=== PATIENT | male | born 1950 | race Caucasian/White ===

== ENCOUNTER 2017-09-18 16:33 | Emergency (ER) | payer MEDICARE ==
[~2017-09-18 16:33] MED LIST: ISOVUE-370 76%-LOCM 1 ML ONE
[2017-09-18 18:42] LABS: #Eosinphils 0.2 thou/uL (0.0-0.7); #Lymphocytes 1.6 thou/uL (1.20-3.40); #Monocytes 0.7 thou/uL (0.11-0.59); #Neutrophils 8.2 thou/uL (1.40-6.50); %Basophils 0.4 % (0.0-1.0); %Eosinophils 1.9 % (0.0-10.0); %Lymphocytes 14.6 % (21.0-51.0); %Monocytes 6.7 % (0.0-10.0); %Neutrophils 76.3 % (42.0-75.0); Hemoglobin 16.2 g/dL (14.0-18.0); Mean Corpuscular HGB CONC 32.3 g/dL (32.0-36.0); Mean Corpuscular Volume 92.9 fl (80.0-94.0); Platelet Count 240 thou/uL (130-400); RBC Distribution Width 11.7 % (11.5-14.5); Red Blood Cell (RBC) Count 5.39 mill/uL (4.70-6.10); White Blood Cell (WBC) Count 10.8 thou/uL (4.8-10.8)
[2017-09-18 18:57] LABS: ALT (SGPT) 11 U/L (8-55); AST (SGOT) 14 U/L (5-34); Albumin 4.1 g/dL (3.4-4.8); Alkaline Phosphatase 96 U/L (40-150); Anion Gap 11 mmol/L (10-20); BUN (Urea Nitrogen) 17 mg/dL (8.4-25.7); Bilirubin, Total 0.6 mg/dL (0.2-1.2); Calc. Creatinine Clearance 0 mL/min (70-130); Carbon Dioxide 28 mmol/L (23-31); Chloride 103 mmol/L (98-107); Estimated GFR-MDRD Greater than 90; Globulin 3.1 g/dL (2.4-3.5); Glucose 102 mg/dL (80-115); Potassium 4.4 mmol/L (3.5-5.1); Protein, Total 7.2 g/dL (5.8-8.1); Sodium 138 mmol/L (136-145)
--- NOTE | 2017-09-18 20:09 | RAD ---
PORTABLE AP CHEST X-RAY: 09/18/2017 HISTORY: Cough. COMPARISON: 09/04/2016 FINDINGS: The patient is rotated to the right, accentuating the cardiac silhouette and the mediastinal structur es, but the cardiac silhouette is within normal limits. There is symmetric biapical pleural and pare nchymal scarring with associated calcification. Mild chronic lung changes are seen, but no consolida tion or pleural fluid is seen. Vascular calcification is seen in the thoracic aorta. There has been no interval change when compared to the prior exam. IMPRESSION: Stable chronic lung changes without evidence of an acute cardiopulmonary process. POS: [facility]
--- NOTE | 2017-09-18 20:44 | CT ---
CT SCAN ORBITS WITH IV CONTRAST: 09/18/2017 HISTORY: Left eye swelling and discharge. COMPARISON: None available. FINDINGS: The right globe is atrophic and partially calcified. There are no post septal inflammatory changes o r fluid collections seen bilaterally. The left globe has a normal CT appearance. There is mild incr eased density/hyperemia with slight soft tissue swelling involving the eyelid on the left, which coul d be related to an inflammatory process. There is no fluid collection seen to suggest an abscess. There is mild mucosal thickening in the left sphenoid sinus, with minimal mucosal thickening in the e thmoid air cells bilaterally. The visualized frontal sinuses, as well as the visualized maxillary an tra, do appear clear. There is a large, enhancing mass seen at the skull base. This large mass may potentially arise from the sella. This large, enhancing mass measures approximately 3.1 cm craniocaudal x 5 cm transverse x 4.5 cm AP. The large mass does abut the anterior horns of the lateral ventricles, as well as the thi rd ventricle. The middle cerebral arteries are seen coursing through a portion of this mass, while o ther vessels are slightly displaced. A meningioma should displace vessels, as opposed to the vessels coursing through the mass. Further evaluation with MRI is recommended. There is encephalomalacia seen within the right temporal lobe. There is also mild prominence of the diploic space on the right, which is asymmetric to the left, of uncertain etiology. There is ex vacu o dilatation of the temporal horn of the right lateral ventricle, partially imaged. IMPRESSION: 1. Large, enhancing mass at the skull base, which could potentially represent a large mass arising f rom the sella turcica. The middle cerebral arteries do appear to course through this mass and, as a result, meningioma is thought less likely. This mass does result in mild mass effect on the anterior horns of the lateral ventricles, as well as the third ventricle, but no hydrocephalus is appreciated on the limited evaluation of the brain. 2. Encephalomalacia, right temporal lobe. 3. Atrophic partially calcified right globe. 4. No post septal inflammatory changes, fluid, or fluid collection is seen on the left; however, the re is what appears to be hyperemia of the eyelid on the left, which may be related to an inflammatory process/infection. This would be better evaluated clinically. The above findings were discussed with Dr. Robert in the emergency department on 09/18/2017 at 2007 hours. CODE CR POS: [facility]
[2017-09-18] MEDS ORDERED: Amoxicillin/Potassium Clav 875 MG TAB ONE (21:04)
== END 2017-09-18 21:41 | disposition home or self-care (01) ==
LOC: ERS 16:33
DX: H57.8 Other specified disorders of eye and adnexa; J45.909 Unspecified asthma, uncomplicated; D49.6 Neoplasm of unspecified behavior of brain; Z79.899 Other long term (current) drug therapy
CPT/HCPCS: 36415; 70481; 71045; 80053; 85025; 85652; 86140; 96360; 96361

== ENCOUNTER 2017-09-22 10:49 | Outpatient (CLI) | payer MEDICARE ==
--- NOTE | 2017-09-22 14:31 | MRI ---
PRE AND POSTCONTRAST ENHANCED MRI IMAGES OF BRAIN: DATE: 09/22/17. COMPARISON: Comparison is made to previous exam from 09/18/17 CT. FINDINGS: Pre- and postcontrast-enhanced MRI images of brain demonstrate a 4.9 x 4.7 x 4.4 cm mass originating along the lesser wing of the sphenoid centrally migrating superiorly, anteriorly, and posteriorly. T he lesion appears to have some anterior dural-based tails. The mass involves the lesser wing of the sphenoid extending posteriorly into the sella further migrating posteriorly draping over the upper ma rgin of the dural aspect of the clivus. The lesion has numerous abnormal vessels compatible with ext ensive vascular arterial flow. The right and left supraclinoid ICA have flow within them. The flow is seen extending into the KAL and MCA vessels bilaterally. Differential diagnosis for this lesion i ncludes meningioma, hemangiopericytoma, and less likely possible aggressive macroadenoma of the pitui tary. Images are less than optimum due to patient motion. It is difficult to discriminate the exact extens ion into the left orbit due to patient motion. The patient has an atrophied right globe. There is extensive atrophy of the right hemisphere with old encephalomalacia changes seen in the righ t temporal lobe and right occipital lobe. IMPRESSION: Sphenoid osseous dural-based lesion as described above. The mass involves much of the lesser wing of the sphenoid extending posteriorly along the posterior aspect of the sphenoid sinus and upper restaurant area manager ior margin of the clivus. POS: [facility]
== END 2017-09-22 10:50 | disposition home or self-care (01) ==
LOC: SCSMRI 10:49
PROVIDERS: ATTEND Neurological Surgery
DX: C71.9 Malignant neoplasm of brain, unspecified (principal)
CPT/HCPCS: 70553

== ENCOUNTER 2017-12-27 08:12 | Outpatient (CLI) | payer MEDICARE ==
[2017-12-27 09:20] LABS: Estimated GFR-MDRD - POC Greater than 90
--- NOTE | 2017-12-27 11:29 | MRI ---
BRAIN MRI WITH AND WITHOUT CONTRAST: COMPARISON: Reference is made to 09/22/17 MRI exam. CLINICAL INDICATION: Brain mass, followup. FINDINGS: Redemonstration of avidly enhancing T1 hypointense, T2/FLAIR hyperintense mass situated about the rocio la and anterior skull base, extraaxial in location. The mass measures approximately 4.5 cm craniocau jimbo x 4.7 cm transverse x 4.3 cm AP. There is persistent regional mass effect including cephalad dis placement, and effacement of the anterior aspect of the lateral ventricles. The mass replaces the na tive sellar contents and encases each cavernous carotid artery. Again seen is the proximal aspect of each MCA as well as proximal aspect of the anterior cerebral arteries and the anterior communicating artery within the mass. There is prepontine effacement about the cephalad aspect of the neyda. There is also mass effect upon the anterior aspect of each thalamus and effacement of the anterior aspect of the third ventricle. Redemonstration of prominent region of cystic encephalomalacia of the right occipital temporal region . Stable chronic deformity of the right globe. IMPRESSION: Redemonstration of a large enhancing extraaxial mass centered about the sella and anterior skull base with associated mass effect, grossly stable. Redemonstration of prominent region of cystic encephal omalacia of the right temporo-occipital lobe with ex vacuo dilatation of the ventricular system. POS: [facility]
[2017-12-27] MEDS ORDERED: Gadobenate Dimeglumine 529 MG/1 ML (20ML VIAL) ONE (12:36)
== END 2017-12-27 08:13 | disposition home or self-care (01) ==
LOC: TBSIIMAG 08:12
PROVIDERS: ATTEND Neurological Surgery
DX: G93.9 Disorder of brain, unspecified (principal)
CPT/HCPCS: 70553; 82565; A9579

== ENCOUNTER 2020-03-14 10:08 | Outpatient (CLI) | payer MEDICARE ==
--- NOTE | 2020-03-14 10:41 | RAD ---
EXAM: 2 views of the lumbosacral spine HISTORY: Low back pain COMPARISON: None FINDINGS: 2 views of the lumbosacral spine shows normal height and alignment of the vertebral bodies and intervertebral discs without fracture or subluxation. Mild posterior facet arthrosis is seen in the lower lumbosacral spine. The sacroiliac joints are unremarkable. IMPRESSION: Mild degenerative changes without acute osseous abnormality.
--- NOTE | 2020-03-14 10:59 | RAD ---
PA AND LATERAL VIEWS CHEST: Date: 03/14/2020 HISTORY: Cough. COMPARISON: 09/18/2017. FINDINGS: The heart size is normal. The lungs are well expanded with stable chronic changes. No lobar consolida tion, pneumothoraces, or pleural effusions are seen. There are degenerative changes in the spine. A h iatal hernia is present. IMPRESSION: No acute process. POS: [facility]
== END 2020-03-14 10:09 | disposition home or self-care (01) ==
LOC: BICRAD 10:08
PROVIDERS: ATTEND Family Medicine
DX: M54.5 Low back pain (principal); R05 Cough; M47.816 Spondylosis without myelopathy or radiculopathy, lumbar region
CPT/HCPCS: 36415; 71046; 72100; 80053; 84443; 85025

== ENCOUNTER 2021-10-13 10:39 | Outpatient (CLI) | payer MEDICARE | END 2021-10-13 10:40 | disposition home or self-care (01) | LOC: BICULT 10:39 | PROVIDERS: ATTEND Family Medicine | DX: N40.0 Benign prostatic hyperplasia without lower urinary tract symptoms (principal); N27.1 Small kidney, bilateral | CPT/HCPCS: 76770 ==

== ENCOUNTER 2022-02-14 09:06 | Inpatient (IN) | payer MEDICARE, OTHER ==
[2022-02-14] MEDS ORDERED: Lorazepam (BATCHED) 2 MG/ML SYR ONE (09:09)
[2022-02-14 09:29] LABS: #Monocytes 1.4 thou/uL (0.11-0.59); #Neutrophils 12.7 thou/uL (1.40-6.50); %Basophils 0.1 % (0.0-1.0); %Eosinophils 0.2 % (0.0-10.0); %Lymphocytes 17.2 % (21.0-51.0); %Monocytes 8.4 % (0.0-10.0); %Neutrophils 74.1 % (42.0-75.0); Hemoglobin 12.8 g/dL (14.0-18.0); Mean Corpuscular HGB CONC 31.3 g/dL (32.0-36.0); Platelet Count 448 thou/uL (130-400); RBC Distribution Width 14.4 % (11.5-14.5); Red Blood Cell (RBC) Count 4.75 mill/uL (4.70-6.10); White Blood Cell (WBC) Count 17.2 thou/uL (4.8-10.8)
[2022-02-14 09:35] LABS: Bilirubin Negative (Negative); Blood, Urine Negative (Negative); Clarity Turbid (Clear); Glucose, Urine (Dipstick) Normal (Negative); Ketone, Urine Negative (Negative); Leukocyte 75 Leu/uL (Negative); Nitrite Negative (Negative); Protein, Urine (Dipstick) 30 mg/dL (Neg-Trace); RBC/HPF 0-3 HPF (0-3); Specific Gravity, Urine 1.014 (1.002-1.036); Squamous Epithelial 0-3 HPF (0-3); Urobilinogen Normal mg/dL (Less than 2); pH, Urine 6.5 (5.0-9.0)
[2022-02-14 09:50] LABS: Bacteria/HPF 2+ HPF (None Seen)
[2022-02-14 09:51] LABS: ALT (SGPT) Less than 7 U/L (8-55); AST (SGOT) 13 U/L (5-34); Alkaline Phosphatase 127 U/L (40-110); BUN (Urea Nitrogen) 12 mg/dL (8.4-25.7); Bilirubin, Total 0.5 mg/dL (0.2-1.2); CK (CPK) 34 U/L (30-200); Calc. Creatinine Clearance 0 mL/min (70-130); Calcium 9.2 mg/dL (7.8-10.44); Carbon Dioxide 17 mmol/L (23-31); Chloride 102 mmol/L (98-107); Estimated GFR 92; Globulin 3.2 g/dL (2.4-3.5); Glucose 136 mg/dL (80-115); Potassium 4.9 mmol/L (3.5-5.1); Protein, Total 7.2 g/dL (5.8-8.1); Sodium 141 mmol/L (136-145)
[2022-02-14 09:57] LABS: Anion Gap 26 mmol/L (10-20)
[2022-02-14] MEDS ORDERED: Sodium Chloride 0.9% 100 ML ONE (10:11)
[2022-02-14] MEDS ORDERED: Vancomycin 1 GM/200 ML BAG ONE (10:12)
[2022-02-14] MEDS ORDERED: Cefepime 2 GM VIAL ONE (10:12)
[2022-02-14] MEDS ORDERED: Acetaminophen 325 MG TAB PO PRN (11:59)
[2022-02-14] MEDS ORDERED: Ondansetron PF 4 MG/2 ML Vial IVP PRN (11:59)
[2022-02-14] MEDS ORDERED: Haloperidol Lactate 5 MG/ML VIAL IM SCH (15:15)
[2022-02-14] MEDS ORDERED: Haloperidol Lactate 5 MG/ML VIAL ONE (15:17)
[2022-02-14] MEDS ORDERED: NEED HT FS SCH (15:30)
[2022-02-14] MEDS: Cefepime 2 GM in Sodium Chloride 0.9% 100 ML IVPB SCH (21:18)
[2022-02-15 02:55] LABS: #Lymphocytes 0.8 thou/uL (1.20-3.40); #Monocytes 1.1 thou/uL (0.11-0.59); #Neutrophils 16.6 thou/uL (1.40-6.50); %Basophils 0.2 % (0.0-1.0); %Eosinophils 0.1 % (0.0-10.0); %Lymphocytes 4.2 % (21.0-51.0); %Neutrophils 89.6 % (42.0-75.0); Hemoglobin 13.4 g/dL (14.0-18.0); Mean Corpuscular HGB CONC 31.5 g/dL (32.0-36.0); Mean Corpuscular Hemoglobin 26.5 pg (27.0-31.0); Mean Corpuscular Volume 84.1 fL (78.0-98.0); Mean Platelet Volume 7.8 fL (7.4-10.4); Platelet Count 441 thou/uL (130-400); RBC Distribution Width 14.5 % (11.5-14.5); Red Blood Cell (RBC) Count 5.04 mill/uL (4.70-6.10); White Blood Cell (WBC) Count 18.5 thou/uL (4.8-10.8)
[2022-02-15 03:12] LABS: Lactic Acid 1.7 mmol/L (0.5-2.2)
[2022-02-15 03:18] LABS: Actual Bicarbonate (HCO3a) 24.4 mEq/L (22-28); Base Excess (BEa) 1.5 mEq/L (-2.0 to +3.0); CO2 Tension 33.3 mmHg (35.0-45.0); Calcium, Ionized (arterial) 1.01 mmol/L (1.12-1.30); Carboxyhemoglobin (COHb) 3.9 gm% (0.0-3.0); Hemoglobin (Hb) 14.2 g/dL (14.0-18.0); O2 Tension (PaO2), arterial 81.7 mmHg (> 80.0); Potassium - ABG Lab 3.72 mmol/L (3.70-5.30); pH, Arterial 7.48 (7.35-7.45)
[2022-02-15 03:20] LABS: Anion Gap 19 mmol/L (10-20); BUN (Urea Nitrogen) 14 mg/dL (8.4-25.7); Calc. Creatinine Clearance 73 mL/min (70-130); Calcium 8.7 mg/dL (7.8-10.44); Carbon Dioxide 21 mmol/L (23-31); Chloride 108 mmol/L (98-107); Estimated GFR 99; Glucose 126 mg/dL (80-115); Magnesium 2.1 mg/dL (1.6-2.6); Potassium 3.7 mmol/L (3.5-5.1); Sodium 144 mmol/L (136-145)
[2022-02-15 03:21] LABS: ALV-art Gradient 76.315 mmHg (0-20); Puncture Site RRA
[2022-02-15] MEDS ORDERED: Sodium Chloride 0.9% 500 ML IV SCH (04:45)
[2022-02-15] MEDS: Levothyroxine Sodium 75 MCG TAB PO SCH (05:53)
[2022-02-15] MEDS ORDERED: levETIRAcetam in NS 500 MG in Premix Bag 1 BAG IVPB SCH (09:00)
[2022-02-15] MEDS ORDERED: levETIRAcetam 500 MG/5 ML VIAL SLOW IVP SCH ×3 (09:00→21:00)
[2022-02-15] MEDS ORDERED: Magnevist 469MG/ML 20 ML VIAL ONE (09:15)
[2022-02-15] MEDS ORDERED: Vancomycin 1 GM in Premix Bag 1 BAG IVPB SCH (10:00)
[2022-02-15] MEDS: Cefepime 2 GM in Sodium Chloride 0.9% 100 ML IVPB SCH ×2 (10:09→21:49)
[2022-02-15] MEDS ORDERED: levETIRAcetam 1,500 MG, Admixture Fee 1 EACH in Sodium Chloride 0.9% 100 ML IVPB SCH ×2 (13:15→21:00)
[2022-02-15] MEDS ORDERED: levETIRAcetam 1,500 MG, Admixture Fee 1 EACH in Sodium Chloride 0.9% 100 ML SLOW IVP SCH (13:15)
[2022-02-15] MEDS ORDERED: Dexamethasone 10 MG/ML VIAL SLOW IVP SCH (14:30)
[2022-02-15] MEDS ORDERED: Fosphenytoin Sodium 100 mg/2 ml Vial IVPB SCH (15:00)
[2022-02-15] MEDS: Fosphenytoin Sodium 200 MG in Sodium Chloride 0.9% 50 ML IVPB SCH (18:09)
[2022-02-15] MEDS: levETIRAcetam in NS 1,500 MG in Premix Bag 1 BAG IVPB SCH (21:18)
[2022-02-15] MEDS: Lorazepam (BATCHED) 2 MG/ML SYR SLOW IVP PRN (23:08)
[2022-02-15] MEDS ORDERED: Lorazepam (BATCHED) 2 MG/ML SYR SLOW IVP SCH (23:30)
[2022-02-15] MEDS ORDERED: Lorazepam 2 MG/ML VIAL SLOW IVP SCH (23:30)
[2022-02-16] MEDS: Levothyroxine Sodium 75 MCG TAB PO SCH (06:34)
[2022-02-16] MEDS: Fosphenytoin Sodium 200 MG in Sodium Chloride 0.9% 50 ML IVPB SCH (06:50)
[2022-02-16 08:51] LABS: Band 14 % (5-11); Hemoglobin 12.6 g/dL (14.0-18.0); Hypochromia SLIGHT = 6-15 cells (100X) (0-5/hpf); Lymphocytes 2 % (21-51); MDiff Complete? YES; Mean Corpuscular Hemoglobin 25.5 pg (27.0-31.0); Mean Platelet Volume 8.2 fL (7.4-10.4); Monocytes 2 % (0-10); Neutrophil 82 % (42-75); Platelet Count 388 thou/uL (130-400); Platelet Morphology Comment Appears Adequate; Polychromasia SLIGHT = 2-3 cells (100X) (0-2/hpf); RBC Distribution Width 14.6 % (11.5-14.5); Red Blood Cell (RBC) Count 4.92 mill/uL (4.70-6.10); White Blood Cell (WBC) Count 21.2 thou/uL (4.8-10.8)
[2022-02-16 08:57] LABS: Anion Gap 16 mmol/L (10-20); BUN (Urea Nitrogen) 19 mg/dL (8.4-25.7); Calc. Creatinine Clearance 69 mL/min (70-130); Carbon Dioxide 18 mmol/L (23-31); Chloride 112 mmol/L (98-107); Estimated GFR 97; Glucose 91 mg/dL (80-115); Potassium 3.7 mmol/L (3.5-5.1); Sodium 142 mmol/L (136-145)
[2022-02-16] MEDS: levETIRAcetam in NS 1,500 MG in Premix Bag 1 BAG IVPB SCH (09:18)
[2022-02-16] MEDS: Cefepime 2 GM in Sodium Chloride 0.9% 100 ML IVPB SCH (10:30)
[2022-02-16] MEDS: Lorazepam (BATCHED) 2 MG/ML SYR SLOW IVP PRN ×2 (12:04→16:19)
[2022-02-16 16:00] VITALS: BP 117/77; TEMP 98.1
== END 2022-02-16 16:30 | disposition hospice, inpatient (51) | DRG 871 ==
LOC: ERS 09:06 → ERHOLD 11:04 → NEURO 16:50
PROVIDERS: ADMIT Internal Medicine; ATTEND Internal Medicine
DX: A41.9 Sepsis, unspecified organism (principal); G93.6 Cerebral edema; E87.2 Acidosis; G81.94 Hemiplegia, unspecified affecting left nondominant side; N39.0 Urinary tract infection, site not specified; D32.0 Benign neoplasm of cerebral meninges; Z51.5 Encounter for palliative care; Z66 Do not resuscitate; Z20.822 Contact with and (suspected) exposure to COVID-19; E03.9 Hypothyroidism, unspecified; J45.909 Unspecified asthma, uncomplicated; S80.212A Abrasion, left knee, initial encounter; S80.812A Abrasion, left lower leg, initial encounter; L89.312 Pressure ulcer of right buttock, stage 2; L89.151 Pressure ulcer of sacral region, stage 1; S20.219A Contusion of unspecified front wall of thorax, initial encounter; K20.90 Esophagitis, unspecified without bleeding; H54.7 Unspecified visual loss; R33.9 Retention of urine, unspecified; Z79.890 Hormone replacement therapy
CPT/HCPCS: 36415; 36416; 36600; 70450; 70553; 71045; 80048; 80053; 81003; 81015; 82550; 82805; 83605; 83735; 84484; 85025; 87040; 93005; 93010; 94760; 95712; 95819; 95957; 96361; 96365; 96375; A9579; J0692; J1100; J1630; J1953; J2060; J3370; J3490; J7030; Q2009; U0003; U0005

== ENCOUNTER 2022-02-16 17:04 | Inpatient (IN) | payer OTHER ==
[2022-02-16] MEDS ORDERED: Bisacodyl 10 MG SUPP PR PRN (17:12)
[2022-02-16] MEDS ORDERED: diphenhydrAMINE 50 MG/ML VIAL IVP PRN (17:15)
[2022-02-16] MEDS ORDERED: Haloperidol Lactate 5 MG/ML VIAL SLOW IVP PRN (17:15)
[2022-02-16] MEDS ORDERED: Ondansetron PF 4 MG/2 ML Vial IVP PRN (17:15)
[2022-02-16] MEDS ORDERED: Acetaminophen 650 MG Suppository PR PRN (17:15)
[2022-02-16] MEDS ORDERED: Scopolamine 1.5 mg/72 hour Patch TOP PRN (17:15)
[2022-02-16] MEDS ORDERED: Promethazine HCl 25 MG SUPP PR PRN (17:15)
[2022-02-16] MEDS ORDERED: Lorazepam (BATCHED) 2 MG/ML SYR SLOW IVP PRN (17:35)
[2022-02-16] MEDS: Fosphenytoin Sodium 200 MG in Sodium Chloride 0.9% 50 ML IVPB SCH (18:51)
[2022-02-16] MEDS: levETIRAcetam in NS 1,500 MG in Premix Bag 1 BAG IVPB SCH (20:02)
[2022-02-16] MEDS: Lorazepam (BATCHED) 2 MG/ML SYR SLOW IVP SCH (21:05)
[2022-02-17] MEDS: Fosphenytoin Sodium 200 MG in Sodium Chloride 0.9% 50 ML IVPB SCH ×2 (05:04→15:52)
[2022-02-17] MEDS: Lorazepam (BATCHED) 2 MG/ML SYR SLOW IVP SCH ×2 (05:05→17:30)
[2022-02-17] MEDS: Morphine 2 MG/ML VIAL SLOW IVP PRN ×3 (06:12→20:34)
[2022-02-17] MEDS: levETIRAcetam in NS 1,500 MG in Premix Bag 1 BAG IVPB SCH ×2 (10:30→20:33)
[2022-02-17] MEDS ORDERED: Diazepam 10 MG/2 ML SYRINGE IVP PRN (13:36)
[2022-02-17] MEDS ORDERED: Lorazepam (BATCHED) 2 MG/ML SYR SLOW IVP SCH (13:45)
[2022-02-17] MEDS: Dexamethasone 4 mg/ml Vial SLOW IVP SCH (20:34)
[2022-02-18] MEDS: Lorazepam (BATCHED) 2 MG/ML SYR SLOW IVP SCH ×5 (01:12→23:41)
[2022-02-18] MEDS: Fosphenytoin Sodium 200 MG in Sodium Chloride 0.9% 50 ML IVPB SCH ×2 (05:43→17:21)
[2022-02-18] MEDS: levETIRAcetam in NS 1,500 MG in Premix Bag 1 BAG IVPB SCH (08:13)
[2022-02-18] MEDS: Dexamethasone 4 mg/ml Vial SLOW IVP SCH ×2 (08:14→20:01)
[2022-02-18] MEDS: levETIRAcetam 500 MG/5 ML VIAL SLOW IVP SCH (20:06)
[2022-02-19] MEDS: Morphine 2 MG/ML VIAL SLOW IVP PRN (00:11)
[2022-02-19] MEDS: Lorazepam (BATCHED) 2 MG/ML SYR SLOW IVP SCH ×3 (05:06→19:42)
[2022-02-19] MEDS: Dexamethasone 4 mg/ml Vial SLOW IVP SCH ×2 (09:17→20:04)
[2022-02-19] MEDS: levETIRAcetam 500 MG/5 ML VIAL SLOW IVP SCH ×2 (10:13→20:09)
[2022-02-19] MEDS: Fosphenytoin Sodium 200 MG in Sodium Chloride 0.9% 50 ML IVPB SCH (11:03)
[2022-02-20] MEDS: Lorazepam (BATCHED) 2 MG/ML SYR SLOW IVP SCH ×5 (00:34→23:18)
[2022-02-20] MEDS: levETIRAcetam 500 MG/5 ML VIAL SLOW IVP SCH ×2 (09:20→20:12)
[2022-02-20] MEDS: Dexamethasone 4 mg/ml Vial SLOW IVP SCH ×2 (09:20→20:13)
[2022-02-20] MEDS: Fosphenytoin Sodium 200 MG in Sodium Chloride 0.9% 50 ML IVPB SCH (12:43)
[2022-02-21] MEDS: Lorazepam (BATCHED) 2 MG/ML SYR SLOW IVP SCH ×3 (06:08→18:20)
[2022-02-21] MEDS: levETIRAcetam 500 MG/5 ML VIAL SLOW IVP SCH ×2 (08:12→22:02)
[2022-02-21] MEDS: Dexamethasone 4 mg/ml Vial SLOW IVP SCH ×2 (08:12→21:56)
[2022-02-21] MEDS ORDERED: Morphine 2 MG/ML VIAL SLOW IVP SCH (12:30)
[2022-02-22] MEDS: Lorazepam (BATCHED) 2 MG/ML SYR SLOW IVP SCH ×4 (00:01→19:08)
[2022-02-22] MEDS: Dexamethasone 4 mg/ml Vial SLOW IVP SCH ×2 (09:53→20:42)
[2022-02-22] MEDS: levETIRAcetam 500 MG/5 ML VIAL SLOW IVP SCH ×2 (09:54→20:46)
[2022-02-22] MEDS: Morphine 2 MG/ML VIAL SLOW IVP PRN (12:29)
[2022-02-22] MEDS ORDERED: Morphine 4 MG/ML VIAL SLOW IVP PRN (14:58)
[2022-02-22] MEDS ORDERED: Morphine 4 MG/ML VIAL SLOW IVP SCH (15:00)
[2022-02-22 20:51] VITALS: BP 75/66; TEMP 98.6
[2022-02-23] MEDS: Lorazepam (BATCHED) 2 MG/ML SYR SLOW IVP SCH ×2 (01:09→06:02)
[2022-02-23] MEDS: Dexamethasone 4 mg/ml Vial SLOW IVP SCH (08:21)
[2022-02-23] MEDS: levETIRAcetam 500 MG/5 ML VIAL SLOW IVP SCH (08:21)
== END 2022-02-23 07:06 | disposition expired | DRG 951 ==
LOC: NEURO 17:04 → T4-B 02-17 13:44
PROVIDERS: ADMIT Family Medicine; ATTEND Family Medicine
DX: Z51.5 Encounter for palliative care (principal); A41.9 Sepsis, unspecified organism; N39.0 Urinary tract infection, site not specified; G91.1 Obstructive hydrocephalus; D32.9 Benign neoplasm of meninges, unspecified; Z66 Do not resuscitate; J45.909 Unspecified asthma, uncomplicated; R56.9 Unspecified convulsions; E03.9 Hypothyroidism, unspecified; H54.7 Unspecified visual loss; Z98.890 Other specified postprocedural states; Z79.899 Other long term (current) drug therapy; Z79.890 Hormone replacement therapy
CPT/HCPCS: J1100; J1630; J1953; J2060; J2270; Q2009